=== PATIENT | female | born 2000 | race Caucasian/White ===

== ENCOUNTER 2024-07-22 14:30 | Inpatient (IN) ==
--- NOTE | 2024-07-22 14:43 | ED Triage Note ---
Date of Service July 22, 2024 Provider in Triage Author: Karena Jackson History of Present Illness This patient was briefly evaluated while in triage. An abbreviated physical exam was performed. This patient is a 23-year-old Female who presents to the ED for evaluation of anemia. Pt. referred by Monique Monsivais PA-C at [facility]. Pt. states she feels tired. Notes she was referred for blood transfusion. History is difficult from the patient. She seems to have slow mentation and is having difficulty answering questions. I did reach out to Monique Monsivais PA-C at [facility]. I was able to speak with her regarding this patient. She states that she saw the patient today for her first visit. The patient was referred by [facility]. In April, she had a hemoglobin of 4.4. Patient had repeat hemoglobin completed in May that was 4.6. The patient advised S that this is chronic for her. She is from [place]. She states that she has required blood transfusions in the past. The patient is currently taking an iron supplem ent and is reportedly compliant with this. Given the patient's slow mentation noted by me at her visit today, she was concerned for long-term effects related to the patient's anemia. She is worried that the patient likely needs iron/blood transfusion at this time. She states today as an outpatient, the hemoglobin was 6.8, but the MCV was less than 60. She does note that she has thalassemia labs pending. She is concerned for the patient's mental status prompting her referral to the ED. Physical Exam VITALS: Vitals are noted on the nurse's note and reviewed by myself. GENERAL: This is a 23 year old female, in no acute distress, nondiaphoretic, well-developed well-nourished. SKIN: Pale HEAD: Normocephalic atraumatic. EYES: Conjunctivae without injection, sclerae without icterus. NECK: No JVD. LUNGS: No retractions or accessory muscle use. MUSCULOSKELETAL: Normal gait. NEURO: Patient was alert and oriented, though slow to respond and having difficulty answering questions. Initial orders for labs and / or imaging were placed and patient was placed in the waiting area until a bed is available. Please see further documentation for the full ED course.
[2024-07-22] MEDS ORDERED: SODIUM CHLORIDE 0.9% 100 ML IV PRN (14:58)
--- NOTE | 2024-07-22 15:01 | Emergency Department Note ---
Impression & Plan Symptomatic anemia, Anemia requiring transfusions ED Provider Note HISTORY OF PRESENT ILLNESS: Patient is a 23-year-old female presenting with symptomatic anemia. Patient reports that she has been short of breath with exertion and having episodes of lightheadedness "for a while." She reports she takes iron supplementation and has a history of anemia. Per discussion with [facility], the patient has had hemoglobin of 4.4 in April and was rechecked in May and was 4.6 at [facility] and was referred to hematology/oncology for further workup. Today at her appointment, the patient seemed very confused and slow to respond and given her anemia of 6.8 on today's laboratory workup, she was referred to the emergency department. Patient reports feeling generally unwell for a while. Reports her last blood transfusion was "a number of years ago." She denies any melena or hematochezia. Patient is confused and slow to respond to questions. ROS: as above PHYSICAL EXAM: Constitutional: Patient appears in no acute distress. HENT: Head: Normocephalic and atraumatic. Eyes: EOMI, PERRL Mouth/Throat: Mucous membranes moist. Perioral pallor. Poor dentition. Neck: Trachea midline. Neck supple. Cardiovascular: RRR, No murmurs, rubs or gallops. Intact distal pulses. Pulmonary/Chest: No respiratory distress. Breath sounds clear and equal bilaterally. No wheezes or rales. Abdominal: Abdomen soft, no tenderness, rebound or guarding. Musculoskeletal: No edema, tenderness or deformity noted. Skin: Warm and dry. No rash, erythema, or cyanosis. Pale appearing Psychiatric: Appropriate mood and affect for situation. Neurological: Alert and keenly responsive. CN II-XII grossly intact, moving all extremities equally and fully. MDM: - Vitals signs stable - History obtained via patient. History as above. - Chronic conditions affecting care: none - Differential diagnoses include, but are not limited to: blood loss; iron deficiency; thalassemia; ACS; pneumonia - Order placed for continuous cardiac monitoring. At this time, monitor showed rate of 86 bpm with normal sinus rhythm, per my interpretation. - External medical records reviewed. - EKG interpreted by myself showed normal sinus rhythm. Rate 77 bpm. QT 376. No acute ischemic changes. - Laboratory workup interpreted by myself showed normal WBC; anemia (Hgb 7.1); normal PT/INR; normal lipase; normal troponin; negative hCG - CXR negative for pneumonia, per my interpretation - Iron studies and ferritin ordered. - Thalassemia labs ordered - Patient consented for blood. 3 units PRBC ordered, with 2 units to transfuse now. - Given patient's symptoms and her confusion, will admit for further anemia workup. - Discussion was had with employment evaluator/case manager about patient's case and need for admission - Hospitalist, Dr. Grullon, consulted for admission - [facility]. I have personally spent 34 minutes of critical care time in the direct management of this patient. This includes bedside care, interpretation of diagnostic studies, and testing, discussion with consultants, patient, and family members, and other required patient management activities. This 34 minutes is in excess of all separately billable procedures. ASSESSMENT AND PLAN: Diagnosis: symptomatic anemia; anemia requiring blood transfusion Plan: admit Past Med/Surg History Problem List (Updated 07/22/24 @ 17:48 by Elaine Deutsch MD) Anemia requiring transfusions (Acute) Symptomatic anemia (Acute) Social History Smoking Status: Never smoker Preferred Language: Spanish Feels Safe at Home: Yes Allergies Allergies Allergy/AdvReac Type Severity Reaction Status Date / Time No Known Allergies Allergy Unverified 07/22/24 16:55 Home Meds Home Medications Medication Instructions Recorded Confirmed iron 1 tab PO DIRECTED 07/22/24 07/22/24 Results & Data (ED) Vital Signs Vital Signs - 24 hr 07/22/24 14:32 07/22/24 15:17 07/22/24 16:59 Temperature 36.5 C 36.8 C Temperature Source Temporal Artery Scan Oral Pulse Rate 89 85 68 Pulse Rhythm Pulse Strength Respiratory Rate 18 15 Respiratory Effort / Characteristics Non-Labored Spontaneous Respiratory Depth Normal Blood Pressure 113/78 101/73 Blood Pressure Mean 89 82 Blood Pressure Position Sitting Pulse Oximetry 100 100 Oxygen Delivery Method Room Air Sepsis Recent Fever Within 48 Hours No Sepsis New/Unexplained Change in Mental Status No Sepsis Action Taken by Nursing No Action Required 07/22/24 17:15 07/22/24 17:30 Temperature 37.1 C Temperature Source Oral Pulse Rate 80 86 Pulse Rhythm Regular Pulse Strength Normal Respiratory Rate 16 16 Respiratory Effort / Characteristics Respiratory Depth Blood Pressure 100/70 102/63 Blood Pressure Mean 80 76 Blood Pressure Position Pulse Oximetry 100 100 Oxygen Delivery Method Sepsis Recent Fever Within 48 Hours Sepsis New/Unexplained Change in Mental Status Sepsis Action Taken by Nursing Laboratory Data 07/22/24 15:03 07/22/24 15:03 Lab Results 07/22/24 07/22/24 Range/Units 15:03 15:38 WBC 4.97 (4.8-10.8) K/ul RBC 4.54 (4.20-5.40) M/uL Hgb 7.1 L (12.0-16.0) g/dl Hct 27.6 L (37.0-47.0) % MCV 60.8 L (80.0-100.0) fL MCH 15.6 L (25.0-34.0) pg MCHC 25.7 L (32.0-36.0) g/dL RDW Std Deviation 39.8 (36.4-46.3) fL RDW Coeff of Nandini 18.8 H (11.5-14.5) % Plt Count 343 (130-400) K/uL MPV 9.6 (9.4-12.4) fL Immature Gran % (Auto) 0.4 % Neut % (Auto) 47.3 % Lymph % (Auto) 43.1 % [place] % (Auto) 8.0 % Eos % (Auto) 0.6 % Baso % (Auto) 0.6 % Neut # (Auto) 2.35 (1.40-6.50) K/uL Lymph # (Auto) 2.14 (1.20-3.40) K/uL [place] # (Auto) 0.40 (0.11-0.59) K/uL Eos # (Auto) 0.03 (0.00-0.50) K/uL Baso # (Auto) 0.03 (0.00-0.20) K/uL Immature Gran # (Auto) 0.02 (0.01-0.20) K/uL Hypochromasia Present Anisocytosis Present Microcytosis Present Tear Drop Cells 1+ Ovalocytes 1+ PT 10.8 (9.0-12.0) Seconds INR 1.0 (0.9-1.1) APTT 22 (21-31) Seconds PTT Ratio 0.8 Sodium 136 (136-145) mmol/L Potassium 3.6 (3.5-5.1) mmol/L Chloride 104 (98-107) mmol/L Carbon Dioxide 24 (21-32) mmol/L Anion Gap 8 (3-11) BUN 12 (6-23) mg/dl Creatinine 0.54 L (0.6-1.2) mg/dl Est Cr Clr Drug Dosing Not Reportable eGFR 133.42 BUN/Creatinine Ratio 22.2 H (10-20) Glucose 86 (70-99(Fasting)) mg/dl Lactate 1.0 (0.4-2.0) mmol/L Calcium 9.7 (8.6-10.3) mg/dl Iron < 10 L (35-150) mcg/dl TIBC TNP Unsaturated IBC 518 H (155-355) mcg/dl Transferrin % Sat TNP Ferritin 1.3 L (8-388) ng/ml Total Bilirubin 1.4 H (0.2-1.0) mg/dl AST 12 L (13-39) U/L ALT 7 (7-52) U/L Alkaline Phosphatase 72 (34-104) U/L Troponin I High Sens < 2.3 (0-14) pg/ml Total Protein 8.3 (6.0-8.3) gm/dl Albumin 5.1 H (3.4-5.0) gm/dl Globulin 3.2 (2.5-4.0) gm/dl Albumin/Globulin Ratio 1.6 (0.9-2) Lipase 14 (11-82) U/L HCG, Qual Negative (Negative) Blood Type O Positive Blood Type Recheck O Positive Antibody Screen NEGATIVE Crossmatch See Detail Imaging Data Radiologist's Impression: Chest X-Ray 07/22/24 14:44 XR chest 1V portable HISTORY: 23 years-old Female fatigue, anemia COMPARISON: None TECHNIQUE: AP view of the chest FINDINGS: Limited exam secondary to positioning. Heart size is normal. Lungs appear clear. No pneumothorax or pleural effusion. Bones appear grossly intact. IMPRESSION: No acute process. ACT 112: Negative or not required by law. The above report was generated using voice recognition software. It may contain grammatical, syntax or spelling errors. Electronically signed by: lAen Angulo M.D. 07/22/2024 3:38 PM Discharge Plan Visit Data Chief Complaint: Abnormal Labs/Diagnostic Testing Stated Complaint: ABNORMAL LABS ED Provider: Elaine Deutsch Discharge Problem: Symptomatic anemia, Anemia requiring transfusions Forms [facility] Prescriptions: No Action iron 1 tab PO DIRECTED Referrals Referrals: PCP,NO [Physician] -
[2024-07-22 15:23] LABS: Basophils # (auto) 0.03 K/uL (0.00-0.20); Basophils % (auto) 0.6 %; Eosinophils # (auto) 0.03 K/uL (0.00-0.50); Eosinophils % (auto) 0.6 %; Hematocrit (blood only) 27.6 % (37.0-47.0); Hemoglobin 7.1 g/dl (12.0-16.0); Immature Granulocytes # (auto) 0.02 K/uL (0.01-0.20); Immature Granulocytes % (auto) 0.4 %; Lymphocytes # (auto) 2.14 K/uL (1.20-3.40); Lymphocytes % (auto) 43.1 %; Mean Corpuscular Hemoglobin 15.6 pg (25.0-34.0); Mean Corpuscular Hgb Conc 25.7 g/dL (32.0-36.0); Mean Corpuscular Volume 60.8 fL (80.0-100.0); Neutrophils # (auto) 2.35 K/uL (1.40-6.50); Neutrophils % (auto) 47.3 %; RDW Coefficient of Variation 18.8 % (11.5-14.5); RDW Standard Deviation 39.8 fL (36.4-46.3); Red Blood Count 4.54 M/uL (4.20-5.40); White Blood Count 4.97 K/ul (4.8-10.8)
--- NOTE | 2024-07-22 15:40 | XRay Report ---
XR chest 1V portable HISTORY: 23 years-old Female fatigue, anemia COMPARISON: None TECHNIQUE: AP view of the chest FINDINGS: Limited exam secondary to positioning. Heart size is normal. Lungs appear clear. No pneumothorax or p leural effusion. Bones appear grossly intact. IMPRESSION: No acute process. ACT 112: Negative or not required by law. The above report was generated using voice recognition software. It may contain grammatical, syntax o r spelling errors. Electronically signed by: Alen Angulo M.D. 07/22/2024 3:38 PM
[2024-07-22 15:47] LABS: Anion Gap 8 (3-11); BUN Creatinine Ratio 22.2 (10-20); Blood Urea Nitrogen 12 mg/dl (6-23); Calcium 9.7 mg/dl (8.6-10.3); Carbon Dioxide 24 mmol/L (21-32); Chloride 104 mmol/L (98-107); Glucose 86 mg/dl (70-99(Fasting)); Potassium 3.6 mmol/L (3.5-5.1); Pregnancy Test, Serum Negative (Negative); Sodium 136 mmol/L (136-145)
[2024-07-22 15:49] LABS: Anisocytosis Present; Hypochromasia Present; Mean Platelet Volume 9.6 fL (9.4-12.4); Microcytosis Present; Ovalocytes 1+; Platelet Count 343 K/uL (130-400); Tear Drop Cells 1+
[2024-07-22 15:50] LABS: Partial Thromboplastin Ratio 0.8; Partial Thromboplastin Time 22 Seconds (21-31); Prothrombin Time 10.8 Seconds (9.0-12.0)
[2024-07-22 15:53] LABS: Troponin I High Sensitivity < 2.3 pg/ml (0-14)
[2024-07-22 16:04] LABS: Alanine Aminotransferase 7 U/L (7-52); Albumin Globulin Ratio 1.6 (0.9-2); Albumin Level 5.1 gm/dl (3.4-5.0); Alkaline Phosphatase 72 U/L (34-104); Aspartate Aminotransferase 12 U/L (13-39); Bilirubin,Total 1.4 mg/dl (0.2-1.0); Globulin 3.2 gm/dl (2.5-4.0); Iron < 10 mcg/dl (35-150); Lipase 14 U/L (11-82); Total Protein 8.3 gm/dl (6.0-8.3); Unsaturated Iron Binding Cap 518 mcg/dl (155-355)
[2024-07-22 16:07] LABS: Ferritin 1.3 ng/ml (8-388)
--- NOTE | 2024-07-22 18:25 | History & Physical Report ---
Date of Service July 22, 2024 Assessment & Plan (1) Symptomatic anemia: Plan: 23 y/o F PMHx anemia; presented to heme-onc appointment 07/22 with hemoglobin 6.8; C/o fatigue, LEMUS times "days" - Admit - H/H 7.1/27.6, MCV 60, MCHC 25.0, MCH 15.6, RDW 39.8 - Smear: Hypochromasia, anisocytosis, microcytosis, teardrop cells 1+, ovalocytes 1+ - Iron < 10, UIBC 518, ferritin 1.3 - Pending thalassemia workup - Pending vitamin B12 and folate - Pending UDS - Pending EKG - Currently receiving 1 unit PRBC; 2 additional units prepped - H/H following completion of first unit PRBC - H&H every 8 hours - Heme/onc consult in AM - When stable, will start Injectafer Plan Cr 0.54; repeat BMP a.m. Dispo: Admit VTE prophylaxis: SCDs Code: Full Admission and Anticipated Discharge Date Admission Date: 07/22/2024 History of Present Illness Chief Complaint: Symptomatic anemia, SOB, fatigue Primary Care Provider: Monique Monsivais PA-C Patient is a 23-year-old female presenting to the ED following recent visit at [facility] heme-onc, noted to be confused, slow to respond, and hemoglobin 6.8 on today's lab workup; referred to ED. ED course: Hgb 7.1, HCT 27.6, MCV 60.8, MCH 14.6, MCHC 25.7, RDW 18.8, platelets 343, coag panel normal, creatinine 0.54, iron less than 10, UIBC 518, ferritin 1.3, bilirubin 1.4, AST 12, ALT 7, albumin 5.1; CXR: No acute process; 3 units PRBC prepared, 1 unit being transfused. Pt is a 23 y/o F with PMHx anemia who presented after being sent from her heme/oncology appointment today with a hemoglobin of 6.8 on labs and reports fatigue and dyspnea on exertion times "days". Occasional dizziness when moving too quickly. Reports that she does have "heavy heartbeat" late at night but otherwise, denies chest pain, shortness of breath, palpitations, abdominal pain, N/V/D/C, melena or BRBPR. No reported additional signs of bleeding, lymphadenopathy, excessive bruising, epistaxis, recent weight loss, night sweats, or fever/chills. Denies illicit drug use. Denies alcohol use. Patient is receiving 1 unit of blood at the time of visit. LNMP: June 18; reports normal menses, no clots; not on control. Please see Dr. Grullon's attestation for additions/changes to treatment plan. Allergies Allergy/AdvReac Type Severity Reaction Status Date / Time No Known Allergies Allergy Unverified 07/22/24 16:55 Home Medications Medication Instructions Recorded Confirmed Type iron 1 tab PO DIRECTED 07/22/24 07/22/24 History Past Med/Surg History Problem List Anemia requiring transfusions (Acute) Symptomatic anemia (Acute) Social History Smoking Status: Never smoker Preferred Language: Setswana Feels Safe at Home: Yes Review of Systems Review of Systems: All systems reviewed & are unremarkable except as noted in Subjective Physical Exam Physical Exam: General: No acute distress, well developed. Skin: Warm and dry; pallor; no nail abnormalities Head: Normocephalic, atraumatic Eyes: PERRL, conjunctivae clear, sclera non-icteric; EOM intact ENT: External ear without swelling; nose atraumatic; poor dentition, tongue normal appearance, no atrophic glossitis or angular cheilosis Neck: Supple, no LAD Cardio: RRR, no M/G/R, S1 and S2 normal Resp: Chest wall symmetric, normal respiratory effort; No respiratory distress, Lungs CTA in all lobes bilaterally, no wheezes, rales, or rhonchi Abdomen: Soft, symmetric, nontender; no distention; No masses or hepatosplenomegaly MSK: No deformities; Pulses palpable and equal; No edema. Neuro: Awake, alert; slightly delayed to respond, appears to be thinking prior to responding Psych: Appropriate mood and affect. Results & Data Results & Data Vital Signs (Past 12 Hours) Vital Signs Temp Pulse Resp BP Pulse Ox O2 Del Method 07/22/24 17:30 86 16 102/63 100 07/22/24 17:15 37.1 C 80 16 100/70 100 07/22/24 16:59 36.8 C 68 15 101/73 100 07/22/24 15:17 85 07/22/24 14:32 36.5 C 89 18 113/78 100 Room Air Laboratory Results 07/22/24 07/22/24 15:38 15:03 WBC 4.97 RBC 4.54 Hgb 7.1 L Hct 27.6 L MCV 60.8 L MCH 15.6 L MCHC 25.7 L RDW Std Deviation 39.8 RDW Coeff of Nandini 18.8 H Plt Count 343 MPV 9.6 Immature Gran % (Auto) 0.4 Neut % (Auto) 47.3 Lymph % (Auto) 43.1 [place] % (Auto) 8.0 Eos % (Auto) 0.6 Baso % (Auto) 0.6 Neut # (Auto) 2.35 Lymph # (Auto) 2.14 [place] # (Auto) 0.40 Eos # (Auto) 0.03 Baso # (Auto) 0.03 Immature Gran # (Auto) 0.02 Hypochromasia Present Anisocytosis Present Microcytosis Present Tear Drop Cells 1+ Ovalocytes 1+ PT 10.8 INR 1.0 APTT 22 PTT Ratio 0.8 Sodium 136 Potassium 3.6 Chloride 104 Carbon Dioxide 24 Anion Gap 8 BUN 12 Creatinine 0.54 L Est Cr Clr Drug Dosing Not Reportable eGFR 133.42 BUN/Creatinine Ratio 22.2 H Glucose 86 Lactate 1.0 Calcium 9.7 Iron < 10 L TIBC TNP Unsaturated IBC 518 H Transferrin % Sat TNP Ferritin 1.3 L Total Bilirubin 1.4 H AST 12 L ALT 7 Alkaline Phosphatase 72 Troponin I High Sens < 2.3 Total Protein 8.3 Albumin 5.1 H Globulin 3.2 Albumin/Globulin Ratio 1.6 Lipase 14 HCG, Qual Negative Blood Type O Positive Blood Type Recheck O Positive Antibody Screen NEGATIVE Crossmatch See Detail Diagnostic Findings Chest X-Ray 07/22/24 14:44 XR chest 1V portable HISTORY: 23 years-old Female fatigue, anemia COMPARISON: None TECHNIQUE: AP view of the chest FINDINGS: Limited exam secondary to positioning. Heart size is normal. Lungs appear clear. No pneumothorax or pleural effusion. Bones appear grossly intact. IMPRESSION: No acute process. ACT 112: Negative or not required by law. The above report was generated using voice recognition software. It may contain grammatical, syntax or spelling errors. Electronically signed by: Alen Angulo M.D. 07/22/2024 3:38 PM Code Status & VTE Plan Code Status Full VTE Prophylaxis Plan VTE Prophylaxis will be ordered: Yes Supervising Physician Co-Signing Physician Notes Patient seen and examined, chart reviewed, case discussed with Mara Urena PA-C and I agree with the assessment and plan as above except as otherwise noted Labs and images reviewed 23-year-old female who presents with fatigue and suspected chronic anemia with hemoglobin as an outpatient of 6.8, recheck has been patient 6.8. She has a dyspnea on exertion and was referred to heme-onc by [facility] however on their evaluation due to her significant anemia, concern for confusion, and significant symptoms including fatigue and dyspnea was recommended for ER evaluation. She is being transfused 1 unit of red blood cells for symptomatic anemia. Denies GI bleeding. Periods are normal without prolonged duration or heavy blood flow. She reprots she has been seen by [facility] doctors at home and diagnosed with iron deficiency anemia, but the cause is unknown. She reports she eats a regular diet, and does eat meat. She is profoundly iron deficient with a ferritin of 1.3. Will give blood tonight, and if hemoglobin is stable then recommend Venofer 300 mg daily up to 3 total doses. Referral smear and thalassemia evaluation is pending, agree with this. Agree with remaining workup and treatment as above. Transfuse for hemoglobin less than 7 or symptomatic anemia. Agree w/ above PG Care Time/CCT Total # of Minutes Spent Total Time Spent with Patient: Total time spent is greater than 50% in coordination of care (as documented) at patient's floor/unit and/or counseling patient: Coding Level of Care Code 37031 INT INP/OBS CARE 2/55MIN Diagnoses Symptomatic anemia D64.9 Time Spent (min) 45
[2024-07-22 18:35] LABS: Folate (Folic Acid),Ser orPlas > 22.30 ng/ml (>5.38)
[2024-07-22 18:36] LABS: Vitamin B12 244 pg/ml (180-914)
[2024-07-22 19:14] LABS: Appearance Urine Clear (Clear); Bacteria Urine Automated None Seen (None Seen); Bilirubin Urine Negative (Negative); Blood Urine Negative (Negative); Cast Urine Automated 0-2 /lpf (0-2); Color Urine Yellow; Epithelial Cell Urine Auto 0-2 /hpf (0-2); Glucose Urine UA Negative (Negative); Ketones Urine Negative (Negative); Leukocyte Esterase Urine Trace (Negative); Nitrite Urine Negative (Negative); Protein Urine Negative (Negative); RBC Urine Automated 0-2 /hpf (0-2); Specific Gravity Urine 1.015 (1.000-1.030); Urobilinogen Urine Negative (Negative); WBC Urine Automated 0-5 /hpf (0-5); pH Urine 6.5 (4.5-7.5)
[2024-07-22 19:37] LABS: Amphetamines+Metham, Urine Neg (Neg); Barbiturates, Urine Neg (Neg); Benzodiazepine, Urine Neg (Neg); Cocaine, Urine Neg (Neg); Fentanyl, Urine Neg (Neg); MDMA (Ecstacy), Urine Neg (Neg); Marijuana, Urine Neg (Neg); Methadone, Urine Neg (Neg); Opiate, Urine Neg (Neg); Phencyclidine, Urine Neg (Neg)
[2024-07-22] MEDS ORDERED: MELATONIN 3 MG TAB PO PRN (20:14)
[2024-07-22] MEDS ORDERED: POLYETHYLENE (MIRALAX) 17 GM PACK PO PRN (20:14)
[2024-07-23 01:00] LABS: Hematocrit (blood only) 36.2 % (37.0-47.0); Hemoglobin 10.3 g/dl (12.0-16.0)
[2024-07-23 07:27] LABS: Hematocrit (blood only) 33.5 % (37.0-47.0); Hemoglobin 9.8 g/dl (12.0-16.0); Mean Corpuscular Hemoglobin 19.8 pg (25.0-34.0); Mean Corpuscular Hgb Conc 29.3 g/dL (32.0-36.0); Mean Corpuscular Volume 67.5 fL (80.0-100.0); Mean Platelet Volume 9.4 fL (9.4-12.4); Platelet Count 262 K/uL (130-400); RDW Coefficient of Variation 24.7 % (11.5-14.5); RDW Standard Deviation 57.2 fL (36.4-46.3); Red Blood Count 4.96 M/uL (4.20-5.40); White Blood Count 5.69 K/ul (4.8-10.8)
[2024-07-23 07:36] LABS: Calcium 9.2 mg/dl (8.6-10.3); Creatinine Clr Calc Pharmacy 152.4 ml/min; Potassium 3.6 mmol/L (3.5-5.1)
[2024-07-23 07:39] LABS: Albumin Level 4.2 gm/dl (3.4-5.0); Bilirubin Direct 0.4 mg/dl (0-0.2); Bilirubin,Total 2.8 mg/dl (0.2-1.0); Total Protein 6.8 gm/dl (6.0-8.3)
[2024-07-23 07:50] LABS: Anisocytosis Present; Basophils # (auto) 0.03 K/uL (0.00-0.20); Basophils % (auto) 0.5 %; Eosinophils # (auto) 0.07 K/uL (0.00-0.50); Eosinophils % (auto) 1.2 %; Hypochromasia Present; Immature Granulocytes # (auto) 0.01 K/uL (0.01-0.20); Immature Granulocytes % (auto) 0.2 %; Lymphocytes # (auto) 2.63 K/uL (1.20-3.40); Lymphocytes % (auto) 46.2 %; Microcytosis Present; Monocytes # (auto) 0.62 K/uL (0.11-0.59); Monocytes % (auto) 10.9 %; Neutrophils # (auto) 2.33 K/uL (1.40-6.50); Ovalocytes 1+; Polychromasia 1+; Tear Drop Cells 1+
[2024-07-23 07:52] LABS: Thyroid Stimulating Hormone 2.745 uIu/ml (0.300-4.500)
[2024-07-23] MEDS: OPTIRAY 320 100ml IV ONE (11:19)
--- NOTE | 2024-07-23 13:35 | Hospitalist Progress Note ---
Date of Service July 23, 2024 Assessment & Plan (1) Symptomatic anemia: Plan: 23 y/o F PMHx anemia (diagnosed 2012, unidentified etiology); presented to heme- onc appointment 07/22 with hemoglobin 6.8; C/o fatigue, LEMUS times "days" - H/H 7.1/27.6, MCV 60, MCHC 25.0, MCH 15.6, RDW 39.8 at admission - Smear: Hypochromasia, anisocytosis, microcytosis, teardrop cells 1+, ovalocytes 1+ - Iron < 10, UIBC 518, ferritin 1.3 - Vitamin B12 244, folate 22.3, TSH 2.745 - UDS negative - CTAP: Bladder wall mildly thickened, moderate constipation, cholelithiasis, free fluid in cul-de-sac nonspecific likely within physiological limits - Total bilirubin 1.4-> 2.8; No abdominal pain, no signs of bladder distention on CT; ? hemolysis - Pending thalassemia workup - Pending fecal occult - Pending Aaron test - Pending reticulocytes - Received 2 units PRBC-> H&H 9.8/33.5 - Heme/onc consulted - Will consider Venofer Appreciate heme/onc input and recs (2) Elevated bilirubin: Plan: As above Plan Dispo: Possible discharge home tomorrow if still stable VTE prophylaxis: SCDs Code: Full Admission and Anticipated Discharge Date Admission Date: July 22, 2024 Supervising Physician Co-Signing Physician Notes Physician Brand Advisor Supervision note: I have not personally seen and examined the patient, but discussed and verified the arellano points of the history and physical along with the plan with SUKHDEV Urena with the following exceptions and/or additions: Severe anemia of iron deficiency. B12 also low normal-recommend replacement of B12 with 1000 mcg IM x 1 followed by p.o. B12 Aaron test negative, total bilirubin elevated but LDH negative, check reticulocyte count Fecal occult pending-consider outpatient GI workup Will also give IV Venofer tomorrow Elevated bilirubin-CT abdomen/pelvis negative Follow LFTs, CBC Subjective Patient laying in bed at time of visit. States that she is feeling well overall, and is not having any fatigue or lightheadedness. Denies shortness of breath, palpitations, chest pain, abdominal pain, N/V/D/C. No new concerns from nursing. Telemetry: NSR, HR 60s to 80s Review of Systems Review of Systems: All systems reviewed & are unremarkable except as noted in Subjective Physical Exam Physical Exam: General: No acute distress, well developed. Skin: Warm and dry; color improved; no nail abnormalities Head: Normocephalic, atraumatic Eyes: PERRL, conjunctivae clear, sclera non-icteric; EOM intact ENT: External ear without swelling; nose atraumatic; poor dentition, tongue n ormal appearance, no atrophic glossitis or angular cheilosis Neck: Supple, no LAD Cardio: RRR, no M/G/R, S1 and S2 normal Resp: Chest wall symmetric, normal respiratory effort; No respiratory distress, Lungs CTA in all lobes bilaterally, no wheezes, rales, or rhonchi Abdomen: Soft, symmetric, nontender; no distention; No masses or hepatosplenomegaly MSK: No deformities; Pulses palpable and equal; No edema. Neuro: Awake, alert; slightly delayed to respond, appears to be thinking prior to responding Psych: Appropriate mood and affect. Results & Data Results & Data Vital Signs (Past 12 Hours) Vital Signs Temp Pulse Pulse Resp BP Pulse Ox O2 Del Method 07/23/24 11:57 36.9 C 87 18 111/74 99 Room Air 07/23/24 07:58 63 07/23/24 07:11 36.7 C 84 16 105/66 98 Room Air 07/23/24 04:00 36.6 C 71 18 98/63 L 99 Room Air Laboratory Results CBC, BMP reviewed Diagnostic Findings Abdomen/Pelvis CT 07/23/24 08:36 CT SCAN OF THE ABDOMEN AND PELVIS WITH IV CONTRAST CLINICAL HISTORY: Symptomatic anemia COMPARISON STUDY: No priors. TECHNIQUE: Following the IV administration of 94 cc of Optiray 320, CT scan of the abdomen and pelvis is performed from the lung bases to the proximal femora. Images are reviewed in the axial, sagittal, and coronal planes. IV contrast was administered without complication. A dose lowering technique was utilized adhering to the principles of ALARA. CT DOSE: 405.36 mGy.cm FINDINGS: Lung bases: The heart is normal in size and without pericardial effusion. The lung bases are clear. Liver: The contrast-enhanced liver is normal in size, contour, and attenuation. There is no intrahepatic biliary ductal dilatation. The hepatic veins and portal veins are patent. Gallbladder: There are calcified gallstones with no CT evidence of acute cholecystitis. Spleen: Normal in size and attenuation, measuring 11.3 cm in length. Pancreas: Unremarkable. Adrenal glands: Unremarkable. Kidneys: The contrast enhanced kidneys are normal in size and without hydronephrosis. The kidneys enhance symmetrically. Abdominal vasculature: The abdominal aorta is normal in course and caliber. Bowel: There is no bowel obstruction. Moderate fecal retention is seen throughout the colon. The appendix is well-visualized and normal. Peritoneum: There is no intraperitoneal free air or abdominal ascites. There is a small fat-containing umbilical hernia. Lymphadenopathy: None. Pelvic viscera: The bladder is distended and appears mildly thick walled. The uterus and adnexa are normal as visualized noting bilateral ovarian follicles. An involuting follicle is suggested on the left. There is a [id number]-cswqcxvx volume of free fluid in the cul-de-sac.. Skeletal structures: No lytic or blastic lesions are seen. IMPRESSION: 1. The bladder wall appears mildly thickened. Correlate with clinical findings and urinalysis. 2. Moderate constipation. 3. Cholelithiasis. 4. Free fluid in the cul-de-sac is nonspecific and likely within physiologic limits. 5. Additional findings as above. ACT 112: Negative or not required by law. Electronically signed by: Bautista Leyva M.D. 07/23/2024 3:33 PM PG Care Time/CCT Total # of Minutes Spent Total Time Spent with Patient: Total time spent is greater than 50% in coordination of care (as documented) at patient's floor/unit and/or counseling patient: Coding Level of Care Code 74518 SUB INP/OBS CARE 2/35MIN Diagnoses Symptomatic anemia D64.9 Elevated bilirubin R17 Time Spent (min) 40
--- NOTE | 2024-07-23 13:48 | Oncology Consultation ---
Date of Consultation July 23, 2024 History of Present Illness Attending Physician: Melissa Isaac MD Allergies Allergy/AdvReac Type Severity Reaction Status Date / Time No Known Allergies Allergy Unverified 07/23/24 13:11 Home Medications Medication Instructions Recorded Confirmed Type iron 1 tab PO DIRECTED 07/22/24 07/22/24 History Patient History Social History (System 07/23/24 @ 13:11 by Jennifer Smart) Smoking Status: Never smoker Second Hand Exposure: No; Do You Dip or Chew Tobacco: No; Hx Alcohol Use: No Hx Substance Use: No Preferred Language: Kosovan Communication Ability: Effective Wind Tunnel Engineer Required: No Beliefs That Will Affect Care: None Current Living Situation: Alone Feels Safe at Home: Yes Safety Concerns: Feels Safe At This Time Assistive Devices: None Results & Data Vital Signs (Past 12 Hours) Vital Signs Temp Pulse Pulse Resp BP Pulse Ox O2 Del Method 07/23/24 11:57 36.9 C 87 18 111/74 99 Room Air 07/23/24 07:58 63 07/23/24 07:11 36.7 C 84 16 105/66 98 Room Air 07/23/24 04:00 36.6 C 71 18 98/63 L 99 Room Air
--- NOTE | 2024-07-23 15:35 | CT Scan Report ---
CT SCAN OF THE ABDOMEN AND PELVIS WITH IV CONTRAST CLINICAL HISTORY: Symptomatic anemia COMPARISON STUDY: No priors. TECHNIQUE: Following the IV administration of 94 cc of Optiray 320, CT scan of the abdomen and pelvi s is performed from the lung bases to the proximal femora. Images are reviewed in the axial, sagittal , and coronal planes. IV contrast was administered without complication. A dose lowering technique wa s utilized adhering to the principles of ALARA. CT DOSE: 405.36 mGy.cm FINDINGS: Lung bases: The heart is normal in size and without pericardial effusion. The lung bases are clear. Liver: The contrast-enhanced liver is normal in size, contour, and attenuation. There is no intrahepa tic biliary ductal dilatation. The hepatic veins and portal veins are patent. Gallbladder: There are calcified gallstones with no CT evidence of acute cholecystitis. Spleen: Normal in size and attenuation, measuring 11.3 cm in length. Pancreas: Unremarkable. Adrenal glands: Unremarkable. Kidneys: The contrast enhanced kidneys are normal in size and without hydronephrosis. The kidneys enh ance symmetrically. Abdominal vasculature: The abdominal aorta is normal in course and caliber. Bowel: There is no bowel obstruction. Moderate fecal retention is seen throughout the colon. The appe ndix is well-visualized and normal. Peritoneum: There is no intraperitoneal free air or abdominal ascites. There is a small fat-containin g umbilical hernia. Lymphadenopathy: None. Pelvic viscera: The bladder is distended and appears mildly thick walled. The uterus and adnexa are n ormal as visualized noting bilateral ovarian follicles. An involuting follicle is suggested on the le ft. There is a yexfu-up-vuioztbs volume of free fluid in the cul-de-sac.. Skeletal structures: No lytic or blastic lesions are seen. IMPRESSION: 1. The bladder wall appears mildly thickened. Correlate with clinical findings and urinalysis. 2. Moderate constipation. 3. Cholelithiasis. 4. Free fluid in the cul-de-sac is nonspecific and likely within physiologic limits. 5. Additional findings as above. ACT 112: Negative or not required by law. Electronically signed by: Bautista Leyva M.D. 07/23/2024 3:33 PM
[2024-07-23 16:29] LABS: Reticulocyte % 0.5 % (0.50-2.00); Reticulocytes # 0.02 10^6/uL (0.020-0.100)
[2024-07-23] MEDS: CYANOCOBALAMIN 1000 MCG/ML VIAL IM ONE (18:48)
--- NOTE | 2024-07-23 23:31 | Electrocardiogram Report ---
Test Reason : Blood Pressure : */* mmHG Vent. Rate : 77 BPM Atrial Rate : 77 BPM P-R Int : 116 ms QRS Dur : 60 ms QT Int : 376 ms P-R-T Axes : 62 52 15 degrees QTcB Int : 425 ms Normal sinus rhythm Low voltage QRS Borderline ECG No previous ECGs available Confirmed by Zack Fitch ([id number]) on 07/23/2024 11:30:53 PM Referred By: REFERRED SELF Confirmed By: Zack Fitch
[2024-07-24 07:23] VITALS: BP 92/56; PULSE 64; RESP 18; TEMP 97.3; O2SAT 97
[2024-07-24 08:18] LABS: Albumin Globulin Ratio 1.5 (0.9-2); Albumin Level 4.3 gm/dl (3.4-5.0); BUN Creatinine Ratio 32.1 (10-20); Bilirubin,Total 2.7 mg/dl (0.2-1.0); Calcium 9.5 mg/dl (8.6-10.3); Creatinine Clr Calc Pharmacy 143.8 ml/min; Globulin 2.9 gm/dl (2.5-4.0); Potassium 3.8 mmol/L (3.5-5.1); Total Protein 7.2 gm/dl (6.0-8.3)
[2024-07-24 08:49] LABS: Hematocrit (blood only) 35.3 % (37.0-47.0); Hemoglobin 10.3 g/dl (12.0-16.0); Mean Corpuscular Hemoglobin 19.7 pg (25.0-34.0); Mean Corpuscular Hgb Conc 29.2 g/dL (32.0-36.0); Mean Corpuscular Volume 67.5 fL (80.0-100.0); Mean Platelet Volume 9.4 fL (9.4-12.4); Platelet Count 285 K/uL (130-400); RDW Coefficient of Variation 25.4 % (11.5-14.5); RDW Standard Deviation 57.8 fL (36.4-46.3); Red Blood Count 5.23 M/uL (4.20-5.40); White Blood Count 5.86 K/ul (4.8-10.8)
--- NOTE | 2024-07-24 08:50 | Discharge Summary ---
Discharge Summary Date of Service July 24, 2024 Principal Dx & Hospital Course #1 = Principal Diagnosis (1) Symptomatic anemia: 23 y/o F PMHx anemia (diagnosed 2012, unidentified etiology); presented to heme- onc appointment 07/22 with hemoglobin 6.8; C/o fatigue, LEMUS times "days" - H/H 7.1/27.6, MCV 60, MCHC 25.0, MCH 15.6, RDW 39.8; Iron < 10, UIBC 518, ferritin 1.3 at admission - Smear: Hypochromasia, anisocytosis, microcytosis, teardrop cells 1+, ovalocytes 1+ - Vitamin B12 244; Low-normal; provided B12 IM 07/23; Continue po B12 outpatient and repeat labs outpt - Folate 22.3, TSH 2.745 - CTAP: Bladder wall mildly thickened, moderate constipation, cholelithiasis, free fluid in cul-de-sac nonspecific likely within physiological limits; No GB/duct dilatation - Total bilirubin 2.7 at discharge down from 2.8 ; LDH negative, CT negative; No abdominal pain; Spoke with engine research engineer, likely post-transfusion hemolysis --> follow LFTs as outpt - Aaron negative, retic 0.2 - Received 2 units PRBC total; H&H increased; 10.3/35.3 at discharge - Pending thalassemia workup - Venofer not given as pt anxious to leave hospital early to get to school; to f/u with outpt hematology for iron infusions - No fecal occult able to be collected; f/u outpt GI for workup to include colonoscopy + EGD - F/u with CBC and CMP outpt; outpatient vitamin B12 and iron levels Appreciate heme/onc's input and recs on case Needs outpatient EGD/colonoscopy and possible small bowel capsule endoscopy as outpt for workup for severe iron deficiency anemia 07/24: Patient sitting up at bedside at time of visit. States that she feels well; denies dizziness, syncope, lightheadedness, shortness of breath, chest pain, palpitations. Patient states that she has ready for discharge. Agreeable to recommendations. Agreeable to oral B12 supplementation. Telemetry: HR 60s, NSR Complete patient education of current condition and management was provided. All questions that the patient asked were answered, and the patient demonstrated complete understanding. (2) Elevated bilirubin: As above Plan Dispo: Patient medically stable for discharge, discharge home today VTE prophylaxis: SCDs Code: Full Notes For Next Care Provider Repeat CBC, CMP with specific attention to bilirubin within a week Repeat vitamin B12 levels; started on p.o. B12. Follow iron levels as outpt with Heme/[facility] GI workup recommendedcolonoscopy, EGD; fecal occult unable to be collected Medication Changes From Visit Continue p.o. iron; follow-up outpatient iron infusions Start p.o. vitamin B12 Admission HPI Per Admitting Provider Patient is a 23-year-old female presenting to the ED following recent visit at [facility] heme-onc, noted to be confused, slow to respond, and hemoglobin 6.8 on today's lab workup; referred to ED. ED course: Hgb 7.1, HCT 27.6, MCV 60.8, MCH 14.6, MCHC 25.7, RDW 18.8, platelets 343, coag panel normal, creatinine 0.54, iron less than 10, UIBC 518, ferritin 1.3, bilirubin 1.4, AST 12, ALT 7, albumin 5.1; CXR: No acute process; 3 units PRBC prepared, 1 unit being transfused. Pt is a 23 y/o F with PMHx anemia who presented after being sent from her heme/oncology appointment today with a hemoglobin of 6.8 on labs and reports fa tigue and dyspnea on exertion times "days". Occasional dizziness when moving too quickly. Reports that she does have "heavy heartbeat" late at night but otherwise, denies chest pain, shortness of breath, palpitations, abdominal pain, N/V/D/C, melena or BRBPR. No reported additional signs of bleeding, lymphadenopathy, excessive bruising, epistaxis, recent weight loss, night sweats, or fever/chills. Denies illicit drug use. Denies alcohol use. Patient is receiving 1 unit of blood at the time of visit. LNMP: June 18; reports normal menses, no clots; not on control. Please see Dr. Grullon's attestation for additions/changes to treatment plan. Admission Exam Per Admitting Provider General: No acute distress, well developed. Skin: Warm and dry; pallor; no nail abnormalities Head: Normocephalic, atraumatic Eyes: PERRL, conjunctivae clear, sclera non-icteric; EOM intact ENT: External ear without swelling; nose atraumatic; poor dentition, tongue normal appearance, no atrophic glossitis or angular cheilosis Neck: Supple, no LAD Cardio: RRR, no M/G/R, S1 and S2 normal Resp: Chest wall symmetric, normal respiratory effort; No respiratory distress, Lungs CTA in all lobes bilaterally, no wheezes, rales, or rhonchi Abdomen: Soft, symmetric, nontender; no distention; No masses or hepatosplenomegaly MSK: No deformities; Pulses palpable and equal; No edema. Neuro: Awake, alert; slightly delayed to respond, appears to be thinking prior to responding Psych: Appropriate mood and affect. Discharge Exam General: No acute distress, well developed. Skin: Warm and dry; color improved; no nail abnormalities Eyes: PERRL, conjunctivae clear, sclera non-icteric; EOM intact ENT: Poor dentition, tongue normal appearance, no atrophic glossitis or angular cheilosis Neck: Supple, no LAD Cardio: RRR, no M/G/R, S1 and S2 normal Resp: Chest wall symmetric, normal respiratory effort; No respiratory distress, Lungs CTA in all lobes bilaterally, no wheezes, rales, or rhonchi Abdomen: Soft, symmetric, nontender; no distention; No masses or hepatosplenomegaly MSK: No deformities; Pulses palpable and equal; No edema. Neuro: Awake, alert; slightly delayed to respond, appears to be thinking prior to responding Psych: Appropriate mood and affect. Discharge Plan Discharge Items Patient Disposition: Home - Self-Care Reason For Visit: FATIGUE, LEMUS, ANEMIA Discharge Diagnosis: Iron deficiency anemia requiring transfusions Activity: Resume your previous activity Non-emergency contact: Primary Care Provider and Oncologist Call non-emergency contact if: you have any medication questions and your symptoms worsen Follow-up/Referrals: [facility] [Outside] (Please follow up within 1 week-please call to schedule your appointment) Ye Rojas MD [Outside Practitioners] - (Please follow up with [facility]-you will be contacted with your appointment date and time.) Monique Monsivais PA-C [Primary Care Provider] - (Please follow up as scheduled for you) Diet: Regular Addtl Attending Provider Instructions: You were diagnosed and treated for iron deficiency anemia (low red blood cells). Your treatment required providing you with blood to increase your blood counts. Please continue with oral iron supplements as prescribed. Iron supplement can sometimes cause constipation, so consider taking a stool softener if you start to have constipation with it. Iron may also cause dark colored stools. Given the nature of this type of anemia, we recommend following with outpatient hematology (CHARANJIT Castellon) for follow-up appointment as well as iron transfusions. Follow up with PCP at [facility] within 1 week of discharge. You are also found to have borderline low levels of vitamin B12. You provided with a dose of vitamin B12 while in the hospital, but we recommend continuing on oral supplements of vitamin B12 moving forward. Please consider taking vitamin B12 on an empty stomach to further increase absorption. Please follow-up with engine research engineer as scheduled; repeat CBC, CMP, and Vitamin B12 levels as outpatient follow-up within a week. Recommend also following up with social work professor for complete workup to include a colonoscopy and EGD. If you notice increased dizziness, shortness of breath, worsening of symptoms, or episodes of passing out please call your PCP for advice or return to the ED. Pending Studies at Discharge: Yes Studies:: Thalassemia workup (A globin gene, B globin gene), EPO Stand-Alone Forms: [employer], Work/School Release, Smoking Cessation Medications and DC Order Prescriptions: New cyanocobalamin (vitamin B-12) 1,000 mcg capsule 1,000 mcg PO DAILY Qty: 30 0RF Continued iron 1 tab PO DIRECTED Discharge Orders: Discharge Order (Routine); Ordered 07/24/24 Ordered By: Melissa Caruso/Other Patient Handouts: Anemia, Iron Supplements Admission Data Admit Date/Time: 07/22/24 18:26 Attending Provider: Melissa Isaac Admit Provider: Nikolai Grullon Primary Care Provider: Monique Monsivais Other Providers: Nikolai Grullon; Angel Hendrix Hospital Stay Data Consultations 07/22/24 17:00 ED Decision to Admit Stat 07/23/24 07:45 Consult Hematology Routine Diagnostic Imagining Performed 07/23/24 08:36 CT abd pelvis IV con only Routine Pending Results Patient Have Any Pending Studies at Discharge: No Discharge Instructions Given to Patient (Per Discharging Provider) You were diagnosed and treated for iron deficiency anemia (low red blood cells). Your treatment required providing you with blood to increase your blood counts. Please continue with oral iron supplements as prescribed. Iron supplement can sometimes cause constipation, so consider taking a stool softener if you start to have constipation with it. Iron may also cause dark colored stools. Given the nature of this type of anemia, we recommend following with outpatient hematology (CHARANJIT Castellon) for follow-up appointment as well as iron transfusions. Follow up with PCP at [facility] within 1 week of discharge. You are also found to have borderline low levels of vitamin B12. You provided with a dose of vitamin B12 while in the hospital, but we recommend continuing on oral supplements of vitamin B12 moving forward. Please consider taking vitamin B12 on an empty stomach to further increase absorption. Please follow-up with engine research engineer as scheduled; repeat CBC, CMP, and Vitamin B12 levels as outpatient follow-up within a week. Recommend also following up with social work professor for complete workup to include a colonoscopy and EGD. If you notice increased dizziness, shortness of breath, worsening of symptoms, or episodes of passing out please call your PCP for advice or return to the ED. Supervising Physician Co-Signing Physician Notes PA Supervision Note: I personally saw and examined the patient. I verified all arellano points and agree with SUKHDEV Terry with the following exceptions and/or additions: S-Pt feeling well, no concerns O- Vitals reviewed Gen: [AAOx3, NAD] HEENT: [anicteric sclerae, EOMI] CV: [RRR no mgr nl S1S2] Pulm: [CTAB no wcr] Abd: [+BS soft NT ND no masses or hernias] Ext: [no edema] Skin: [no rashes, warm/dry] Neuro: [full strength throughout] CBC, CMP reviewed A/P-23 yo female here with severe symptomatic iron deficiency anemia.Was given 2 units PRBCs and had improvement. B12 level also borderline low. Recommend outpt GI workup for Fe deficiency. F/u with Heme for iron infusions and ongoing surveillance. Check LFTs as outpt to ensure TBili returns to normal-acute elevation likely to post transfusion hemolysis as per Heme. Liver normal on imaging f/u with PCP Total Time Total Time Spent Total Time Spent (In Minutes): 45 Total Time Includes: Examination of the Patient, Discharge Planning, Medication Reconciliation and Communication With Other Providers Coding Level of Care Code 89159 INP/OBS DISCH >30 MIN Diagnoses Symptomatic anemia D64.9 Elevated bilirubin R17 Time Spent (min) 45
== END 2024-07-24 10:09 | disposition home or self-care (01) | DRG 812 ==
LOC: EDBD → ED 14:30 → SUATTDRO 18:26 → EDINP 18:26 → MERGE 18:26 → 2N 20:15
DX: R17 Unspecified jaundice; D50.9 Iron deficiency anemia, unspecified